=== PATIENT | male | born 2005 | race Two or more races ===

== ENCOUNTER 2023-06-05 14:44 | Emergency (ER) | payer MEDICAID, SELFPAY ==
[2023-06-05 14:50] VITALS: BP 145/94; PULSE 77; RESP 18; TEMP 36.7; O2SAT 98
--- NOTE | 2023-06-05 14:50 | ED_ITS ---
HPI - URI/Sore Throat General Chief Complaint: Upper Respiratory Symptoms Stated Complaint: Not Feeling Well Time Seen by Provider: 06/05/23 16:43 Source: patient Mode of arrival: ambulatory Limitations: no limitations History of Present Illness HPI Narrative: Patient is a 17 year old assigned male at with no reported medical history presenting to the emergency department today with a cough and congestion. Aiden mc states that over the last 4 days he has had nasal congestion and a cough. Patient denies any dizziness, lightheadedness, abdominal pain, nausea, vomiting, fever, chills, blurry vision, double vision, loss of vision, chest pain, difficulty breathing, shortness of breath, back pain, night sweats, pain with urination, increased urinary frequency, increased urinary urgency, blood in his urine or stool, syncope or a near syncopal episode, recent trauma or falls, bowel incontinence, bladder incontinence, bowel retention, bladder retention, or any other complaints at this time. MD elicited complaint: cough and nasal congestion Onset (ago): day(s) (4) Consistency: constant Severity: mild Description of mucous: yellow Able to tolerate fluids by mouth: Yes Exacerbating factors: nothing Relieving factors: nothing Associated symptoms: nasal congestion and cough Treatments prior to arrival: none Related Data Previous Rx's Medication Instructions Recorded amoxicillin 875 mg-potassium 1 tab PO BID 7 days #14 tabs 06/05/23 clavulanate 125 mg tablet benzonatate 100 mg capsule 100 mg PO BID PRN cough 7 days #14 06/05/23 caps loratadine 10 mg tablet (Allergy 10 mg PO DAILY #30 tabs 06/05/23 Relief (loratadine)) Allergies Allergy/AdvReac Type Severity Reaction Status Date / Time No Known Allergies Allergy Verified 06/05/23 14:51 Review of Systems Constitutional: Constitutional: Reports no additional constitutional complaints, Denies chills, Denies fever(s) and Denies night sweats Eyes: Eyes: Reports no additional eye complaints, Denies blurry vision, Denies change in vision, Denies diplopia, Denies eye discharge, Denies loss of vision and Denies eye pain ENT: Denies dizziness and Reports nasal congestion Cardiovascular: Cardiovascular: Reports no additional cardiovascular complaints, Denies chest pain, Denies lightheadedness, Denies Loss of Consciousness and Denies dyspnea Respiratory: Respiratory: Reports no additional respiratory complaints, Reports cough and Denies dyspnea Gastrointestinal: Gastrointestinal: Reports no additional gastrointestinal complaints, Denies abdominal pain, Denies melena, Denies hematochezia, Denies change in bowel habits and Denies change in stool character Genitourinary: Genitourinary: Reports no additional male genitourinary complaints, Denies hematuria, Denies oliguria, Denies difficulty urinating, Denies dysuria, Denies urinary frequency, Denies urinary hesitancy, Denies urinary incontinence and Denies urinary urgency Musculoskeletal: Musculoskeletal: Reports no additional musculoskeletal complaints, Denies numbness and Denies tingling Neurologic: Denies dizziness, Denies loss of vision, Denies numbness and Denies tingling Psychiatric: Psychiatric: Reports no additional psychiatric complaints Endocrine: Endocrine: Reports no additional endocrine complaints Hematologic/Lymphatic: Hematologic/Lymphatic: Reports no additional hematologic/lymphatic complaints Allergic/Immunologic: Allergic/Immunologic: Reports no additional allergic/immunologic complaints PMFSH Past Medical History Attestation statement: The following information was validated with the patient. Source: old records reviewed and nursing notes reviewed Social History Social History Advance Directives: No Advance Directives Information Provided: Yes Physical Exam Vital Signs: Vital Signs: Last Vital Signs Temp 98.0 F 06/05/23 14:50 Pulse 77 06/05/23 14:50 Resp 18 06/05/23 14:50 BP 145/94 H 06/05/23 14:50 Pulse Ox 98 06/05/23 16:59 O2 Del Method Room Air 06/05/23 16:59 BMI result Body Mass Index 20.0 Const: General: cooperative, no acute distress, alert and awake Nutritional Appearance: well nourished Orientation/consciousness: patient oriented x3 Limitations: no limitations HEENT: Head: Yes normal to inspection and Yes atraumatic Ears: hearing grossly normal bilaterally and external ears normal General nose exam: Normal external nose present, no nasal discharge noted and no epistaxis Face and sinus: Yes normal facial exam, No abrasion and No laceration Mouth: Normal oral and palatal mucosa present, no drooling and no muffled voice Eyes: General: appearance normal, both eyes and all related structures Periorbital: periorbital findings normal Eyelids: Yes eyelids normal Conjunctivae: conjunctivae normal Pupils: Equal, round and reactive pupils present EOM: EOMs intact bilaterally Neck: Neck: Yes normal visual inspection, Yes full ROM and Yes no lymphadenopathy Chest: Chest palpation & inspection: normal inspection of the chest Resp: Effort & Inspection: normal respiratory effort and able to speak in complete sentences Auscultation: clear to auscultation bilaterally GI: Inspection: Yes normal to inspection Neuro: General: patient oriented x3 and moves all extremities Cranial nerves: Yes Equal, round and reactive pupils present Cognition (Neuro): normal cognition Motor exam (neuro): 5/5 motor strength present throughout Sensory Exam: Normal double simultaneous stimulation for sensation Coordination: [id number] test normal Extrem: General: Yes normal to inspection, Yes full ROM and Yes capillary refill normal Psych: Appearance: grossly normal Mental Status: mental status grossly normal Affect: normal affect Attitude: cooperative Thought process: Normal thought process present Thought content: Normal thought content present Insight: Good insight present (Psych) Course Course Course Narrative: RME - 17 yo male presenting to the ER for evaluation of nasal and chest congestion x4 days. No fevers. No known sick contacts. Plan: COVID and Flu swabs. Medical Decision Making Medical Decision Making [facility] Narrative: Patient is a 17 year old assigned male at with no reported medical history presenting to the emergency department today with nasal congestion and a cough. Patient's physical exam was unremarkable. Patient's COVID-19, influenza, and strep swabs were negative. I explained my physical exam findings as well as all test results to the patient. I answered all questions asked by the patient. Given the patient's current clinical presentation, will cover for sinusitis. I stressed the importance of the patient taking his medication as prescribed. I stressed the importance of the patient following up with his primary care provider. I stressed the importance of the patient returning to the emergency department immediately if his symptoms were to worsen or if he were to develop any dizziness, shortness of breath, difficulty breathing, chest pain, blurry vision, loss of vision, nausea, vomiting, abdominal pain, fever, chills, back pain, or any other complaints. Patient verbalized agreement and understanding with this treatment plan and discharge. Differential Diagnosis Differential Diagnoses: The differential diagnosis associated with the presentation includes Sinusitis COVID-19 Influenza Strep pharyngitis URI Seasonal allergies Lab Data [facility] Lab Attestation statement: I reviewed the patient's lab results. My interpretation of these studies and their corresponding values is that they are grossly normal. Labs: Lab Results 06/05/23 06/05/23 06/05/23 Range/Units 14:58 14:58 14:58 COVID-19 ([place]) Negative (Negative) COVID-19 Clin Com See Note Influenza Type A ([facility]) Negative (Negative) Influenza Type B ([place]) Negative (Negative) Influenza A & B Note See Note S. pyogenes GrpA [place] Negative (Negative) Discharge Plan Discharge Clinical Impression: Sinusitis, Upper respiratory infection Patient Disposition: Home, Self-Care Instructions: Sinusitis (ED), Upper Respiratory Infection (DC) Additional Instructions: Follow up with your primary care provider. Return to the emergency department immediately if your symptoms worsen or if you develop any dizziness, shortness of breath, difficulty breathing, chest pain, blurry vision, loss of vision, nausea, vomiting, abdominal pain, fever, chills, back pain, or any other com plaints. Prescriptions: New benzonatate 100 mg capsule 100 mg PO BID PRN (Reason: cough) 7 Days Qty: 14 0RF amoxicillin-pot clavulanate 875-125 mg tablet 1 tab PO BID 7 Days Qty: 14 0RF loratadine [Allergy Relief (loratadine)] 10 mg tablet 10 mg PO DAILY Qty: 30 0RF Referrals: [facility] Family Medicine [Provider Group] (Call to establish and follow up with a primary care provider. If you already have a primary care provider, please follo w up with them.) [facility] Primary Care, [facility] [Provider Group] (Call to establish and follow up with a primary care provider. If you already have a primary care provider, please follow up with them.) [facility] Primary Care,[facility] [Provider Group] (Call to establish and follow up with a primary care provider. If you already have a primary care provider, please follow up with them.) Stand Alone Forms: Work/School Release Interventions: ED Discharge Assessment Last Done: 06/05/23 16:58 Discharge Date/Time: 06/05/23 16:58 Print Language: Yakut
[2023-06-05 15:16] LABS: IDNOW Serial# 08D9AD1C; Strep A Nucleic Acid Negative (Negative)
[2023-06-05 15:18] LABS: COVID-19 Test Negative (Negative); IDNOW Serial# 9DB6401D
[2023-06-05 15:21] LABS: IDNOW Serial# BCCEAD1C; Influenza A Negative (Negative); Influenza B2 Negative (Negative)
[2023-06-05 16:59] VITALS: O2SAT 98
--- NOTE | 2023-06-05 16:59 | PC.NURSE ---
aox4. calm, cooperative. no distress noted. talking well. RR even, regular. no iv.
== END 2023-06-05 16:58 | disposition home or self-care (01) ==
PROVIDERS: Physician Assistant; Emergency Provider Emergency Medicine
DX: J06.9 Acute upper respiratory infection, unspecified (principal); J32.9 Chronic sinusitis, unspecified; Z20.822 Contact with and (suspected) exposure to COVID-19; R05.9 Cough, unspecified
CPT/HCPCS: 87502; 87635; 87651; 99283; 99284

== ENCOUNTER 2023-11-18 20:17 | Emergency (ER) | payer MEDICAID, SELFPAY ==
[2023-11-18 20:36] VITALS: BP 137/90; PULSE 79; RESP 18; TEMP 36.6; O2SAT 99; BMI 21.3
--- NOTE | 2023-11-18 20:37 | ED.URI ---
HPI - URI/Sore Throat General Chief Complaint: Upper Respiratory Symptoms Stated Complaint: throat discomfort Time Seen by Provider: 11/18/23 22:30 Related Data Previous Rx's Medication Instructions Recorded amoxicillin 875 mg-potassium 1 tab PO BID 7 days #14 tabs 06/05/23 clavulanate 125 mg tablet benzonatate 100 mg capsule 100 mg PO BID PRN cough 7 days #14 06/05/23 caps loratadine 10 mg tablet (Allergy 10 mg PO DAILY #30 tabs 06/05/23 Relief (loratadine)) Allergies Allergy/AdvReac Type Severity Reaction Status Date / Time No Known Allergies Allergy Verified 06/05/23 14:51 [facility] Social History Social History Smoked in Last 30 Days: No Use of substances other than those prescribed or required for medical reasons: Yes Substance Use Type: Marijuana Advance Directives: No Advance Directives Information Provided: No Physical Exam Vital Signs: Vital Signs: Last Vital Signs Temp 98.6 F 11/18/23 22:31 Pulse 78 11/18/23 22:31 Resp 19 11/18/23 22:31 BP 129/68 11/18/23 22:31 Pulse Ox 98 11/18/23 22:31 O2 Del Method Room Air 11/18/23 22:31 BMI result Body Mass Index 21.3 Course Course Course Narrative: This is a rapid medical exam. Deferred additional HPI, ROS, PE to primary provider. 17 yo male with no known medical history here with complaints of sore throat, cough, painful swallowing, headache x 3 days. Will obtain testing for strep, flu/covid/rsv. VSS Medications Administered Discontinued Medications Generic Name Dose Route Start Last Admin Trade Name Freq PRN Reason Stop Dose Admin Dexamethasone Sodium Phosphate 10 mg 11/18/23 22:44 11/18/23 23:19 Dexamethasone Sod Phosphate 10 Mg/Ml Vial PO 11/18/23 22:45 10 mg ONCE ONE Administration Medical Decision Making Lab Data Labs: Lab Results 11/18/23 Range/Units 21:55 Influenza Type A (PCR) NEGATIVE (Negative) Influenza Type B (PCR) NEGATIVE (Negative) RSV RNA Qual (PCR) NEGATIVE (Negative) SARS-CoV-2 RNA (RT-PCR) NEGATIVE (Negative) S. pyogenes GrpA [place] Negative (Negative) Discharge Plan Discharge Clinical Impression: Pharyngitis Patient Disposition: Home, Self-Care Instructions: Pharyngitis (ED) Additional Instructions: Follow up with your primary care provider. Return to the emergency department immediately if your symptoms worsen or if you develop any dizziness, shortness of breath, difficulty breathing, chest pain, blurry vision, loss of vision, nausea, vomiting, abdominal pain, fever, chills, back pain, or any other complaints. Prescriptions: No Action benzonatate 100 mg capsule 100 mg PO BID PRN (Reason: cough) 7 Days Qty: 14 0RF amoxicillin-pot clavulanate 875-125 mg tablet 1 tab PO BID 7 Days Qty: 14 0RF loratadine [Allergy Relief (loratadine)] 10 mg tablet 10 mg PO DAILY Qty: 30 0RF Referrals: [facility] [place] Family Medicine [Provider Group] (Call to establish and follow up with a primary care provider. If you already have a primary care provider, please follow up with them.) [facility] Care[facility] [Provider Group] (Call to establish and follow up with a primary care provider. If you already have a primary care provider, please follow up with them.) [facility] Primary Care[facility] [Provider Group] (Call to establish and follow up with a primary care provider. If you already have a primary care provider, please follow up with them.) Stand Alone Forms: Work/School Release Discharge Date/Time: 11/18/23 23:26 Print Language: Upper Sorbian
--- NOTE | 2023-11-18 21:56 | MHC.EDTECH ---
Patient strep swab collected and rsv/covid swab all sent to lab .
--- OUTSIDE RECORDS SUMMARY | 2023-11-18 21:58 | XMS_ITS | Continuity of Care Document ---
Author Name Unknown Organization [facility] Address [address] [place] [address]- Care Team Providers Care Sludge Filtration Attendant Name Role Phone Not on Staff, PCP Primary Care Physician Unavail able Encounter [facility] Date(s): 08/29/22 - 09/28/22 [facility] [address], [place] [address] Attending Physician: Treasure Ruiz Admitting Physician: Treasure Ruiz Referring Physician: Admtr, [id number] Allergies, Adverse Reactions, Alerts No Known Medication Allergies Patient Care team information Care Team Personnel Name: Not on Staff, PCP Position: S Physician (General Medicine) Member Role: PCP
--- OUTSIDE RECORDS SUMMARY | 2023-11-18 21:58 | XMS_ITS | Continuity of Care Document ---
Author Name Unknown Organization [facility] Address [address] [place] [address]- Care Team Providers Care Tattoo Identifier Name Role Phone Not on Staff, PCP Primary Care Physician Unavail able Encounter [facility] Date(s): 08/29/22 - 09/05/22 [facility] [address], [place] [address] Attending Physician: Ga Kim DO Allergies, Adverse Reactions, Alerts No Known Medication Allergies Medications Augmentin 875 mg-125 mg oral tablet 1 tablet, By Mouth, 2 times a day, for 10 days, # 20 tablet, 0 Refills, Acute 09/08/22 13:28:00 EDT, 08/29/22 13:28:00 EDT, [facility]/pharmacy #[id number], Partial fill upon patient request if the prescription is for a schedule II opioid drug. Start Date: 08/29/22 Stop Date: 09/08/22 Status: Ordered Vital Signs Most recent to oldest [Reference Range]: 1 Oxygen Saturation [94-100 %] 100 % (08/29/22 1:07 PM) Pulse Rate [55-90 bpm] 117 bpm *H* (08/29/22 1:07 PM) Blood Pressure [71-110/30-71 mm Hg] 114/ 65mm Hg *H* (08/29/22 1:07 PM) Temperature [96.8-100.4 DegF] 101.5 DegF *H* (08/29/22 1:07 PM) Mode of Delivery (Oxygen) Room air (08/29/22 1:07 PM) Blood pressure sites Arm, left (08/29/22 1:07 PM) Temperature Route Temporal (08/29/22 1:07 PM) Patient Care team information Personnel Name: Not on Staff, PCP
[2023-11-18 22:10] LABS: IDNOW Serial# 08D9AD1C; Strep A Nucleic Acid Negative (Negative)
[2023-11-18 22:31] VITALS: BP 129/68; PULSE 78; RESP 19; TEMP 37; O2SAT 98
[2023-11-18 22:40] LABS: Influenza A PCR NEGATIVE (Negative); Influenza B PCR NEGATIVE (Negative); Resp Syncy Virus RNA Qual PCR NEGATIVE (Negative); SARS COV2 PCR INHOUSE NEGATIVE (Negative)
[2023-11-18] MEDS: dexAMETHasone sod phosphate 10 MG/ML VIAL PO (23:19)
--- NOTE | 2023-11-18 23:22 | PC.NURSE ---
Pt ca&ox4, no signs of distress. Pt denies chest pain and sob. Pt medicated per mar and tolerated well. Pt given drink. Plan of care ongoing.
== END 2023-11-18 23:26 | disposition home or self-care (01) ==
PROVIDERS: Nurse Practitioner Family; Emergency Provider Internal Medicine
DX: J02.9 Acute pharyngitis, unspecified (principal); F12.90 Cannabis use, unspecified, uncomplicated; Z20.822 Contact with and (suspected) exposure to COVID-19; Z20.828 Contact with and (suspected) exposure to other viral communicable diseases
CPT/HCPCS: 0241U; 87651; 99283; 99284; J1100

== ENCOUNTER 2025-01-01 15:40 | Emergency (ER) | payer MEDICAID, SELFPAY ==
[2025-01-01 16:03] VITALS: BP 121/79; PULSE 100; RESP 16; TEMP 38.1; O2SAT 100; BMI 17.7
--- NOTE | 2025-01-01 19:49 | PC.NURSE ---
per registration pt left from [facility] at 190
== END 2025-01-01 19:49 | disposition left against medical advice (07) ==
PROVIDERS: Emergency Provider Emergency Medicine
DX: R05.9 Cough, unspecified (principal)
CPT/HCPCS: 99281